=== PATIENT | male | born 1955 | race Caucasian/White ===

== ENCOUNTER 2017-05-28 09:55 | Emergency (ER) | payer SELFPAY ==
[~2017-05-28] VITALS: Ht 182.9 cm; Wt 111.1 kg
[~2017-05-28 09:55] MED LIST: CLON0.2T; DILT60TA28; METO25TA3
[2017-05-28 11:11] LABS: Basophils # (auto) 0.1 uL; Eosinophils # (auto) 0.3 uL; Eosinophils % (auto) 2.6 % (0.0-7.0); Hematocrit 50.8 % (41.0-53.0); Hemoglobin 17.3 g/dL (13.5-17.5); Lymphocytes # (auto) 2.4 uL; Lymphocytes % (auto) 21.3 % (10.0-50.0); Mean Corpuscular Hemoglobin 28.9 pg (28.0-32.0); Mean Corpuscular Hgb Conc. 34.1 g/dL (32.0-36.0); Mean Corpuscular Volume 84.6 fL (80.0-100.0); Mean Platelet Volume 7.8 fL (6.9-10.8); Monocytes # (auto) 0.7 uL; Monocytes % (auto) 6.5 % (0.0-12.0); Neutrophils # (auto) 7.6 uL; Neutrophils % (auto) 68.6 % (37.0-80.0); Nucleated Red Blood Cells % 0.1 %; Platelet Count (auto) 267 10^3/uL (140-450); Red Cell Distribution Width 13.2 % (11.8-14.3); White Blood Cell 11.1 10^3/uL (4.4-10.8)
[2017-05-28 11:34] LABS: Albumin 3.9 g/dL (3.4-5.0); Alkaline Phosphatase 74 U/L (45-117); Anion Gap 5 (5-15); Aspartate Aminotransferase 38 U/L (15-37); BUN/Creatinine Ratio 13.1; Bilirubin, Total 0.9 mg/dL (0.2-1.0); Blood Urea Nitrogen 16 mg/dL (7-18); Carbon Dioxide 33 mmol/L (21-32); Chloride 103 mmol/L (98-107); GFR African American 78 mL/min; GFR Non-African American 64 mL/min; Glucose 105 mg/dL (74-106); Potassium 3.9 mmol/L (3.5-5.1); Sodium 141 mmol/L (136-145); Total Protein 7.8 g/dL (6.4-8.2)
[2017-05-28 13:09] VITALS: BP 152/97
== END 2017-05-28 13:45 | disposition home or self-care (01) ==
LOC: ER 10:05
DX: R42 Dizziness and giddiness (principal); K21.9 Gastro-esophageal reflux disease without esophagitis; I10 Essential (primary) hypertension; F17.210 Nicotine dependence, cigarettes, uncomplicated; F12.10 Cannabis abuse, uncomplicated; Z90.49 Acquired absence of other specified parts of digestive tract
CPT/HCPCS: 36415; 71020; 80053; 84484; 85025; 93005

== ENCOUNTER 2018-08-01 14:51 | Emergency (ER) | payer SELFPAY ==
[~2018-08-01] VITALS: Ht 182.9 cm; Wt 108.9 kg
[~2018-08-01 14:51] MED LIST changes: -METO25TA3; +METO25TA4
[2018-08-01] MEDS ORDERED: cloNIDine HCL 0.1 MG TAB ONE (15:10)
[2018-08-01 15:12] VITALS: BP 211/111
[2018-08-01] MEDS ORDERED: cloNIDine HCL 0.1 MG TAB PO ONE (15:15)
[2018-08-01 17:14] LABS: Basophils # (auto) 0.1 uL; Basophils % (auto) 0.9 % (0.0-2.0); Eosinophils # (auto) 0.7 uL; Eosinophils % (auto) 6.7 % (0.0-7.0); Hematocrit 48.9 % (41.0-53.0); Hemoglobin 16.7 g/dL (13.5-17.5); Lymphocytes # (auto) 1.9 uL; Mean Corpuscular Hemoglobin 28.7 pg (28.0-32.0); Mean Corpuscular Hgb Conc. 34.2 g/dL (32.0-36.0); Monocytes # (auto) 0.7 uL; Monocytes % (auto) 6.4 % (0.0-12.0); Neutrophils # (auto) 6.8 uL; Nucleated Red Blood Cells % 0.1 %; Platelet Count (auto) 315 10^3/uL (140-450); Red Blood Cells 5.83 10^6/uL (4.5-5.90); Red Cell Distribution Width 13.5 % (11.8-14.3); White Blood Cell 10.1 10^3/uL (4.4-10.8)
[2018-08-01 17:27] LABS: Albumin 3.4 g/dL (3.4-5.0); Calcium 8.3 mg/dL (8.5-10.1); Magnesium 2.3 mg/dL (1.6-2.6)
[2018-08-01 17:32] LABS: Bilirubin, Total 0.9 mg/dL (0.2-1.0); Total Protein 7.4 g/dL (6.4-8.2)
== END 2018-08-01 22:59 | disposition left against medical advice (07) ==
LOC: ER 14:51
DX: R21 Rash and other nonspecific skin eruption (principal); Z53.21 Procedure and treatment not carried out due to patient leaving prior to being seen by health care provider
CPT/HCPCS: 36415; 71046; 80053; 83735; 84484; 85025; 93005

== ENCOUNTER 2018-08-02 07:01 | Emergency (ER) | payer SELFPAY ==
[~2018-08-02] VITALS: Ht 182.9 cm; Wt 108.9 kg
[2018-08-02 07:19] VITALS: BP 242/149
[2018-08-02] MEDS ORDERED: amLODIPine BESYLATE 5 MG TAB PO ONE (07:30)
== END 2018-08-02 14:29 | disposition left against medical advice (07) ==
LOC: ER 07:01
DX: L30.9 Dermatitis, unspecified (principal); I10 Essential (primary) hypertension; F17.210 Nicotine dependence, cigarettes, uncomplicated; F12.10 Cannabis abuse, uncomplicated; K21.9 Gastro-esophageal reflux disease without esophagitis
CPT/HCPCS: 36415; 70450; 83880; 84484; 93005

== ENCOUNTER 2018-08-04 17:39 | Emergency (ER) | payer SELFPAY ==
[2018-08-04] MEDS ORDERED: cloNIDine HCL 0.1 MG TAB ONE (17:47)
[2018-08-04] MEDS ORDERED: cloNIDine HCL 0.1 MG TAB PO ONE ×2 (18:00→23:30)
[2018-08-05 00:40] VITALS: BP 162/98
== END 2018-08-05 01:10 | disposition home or self-care (01) ==
LOC: ER 17:42
DX: I10 Essential (primary) hypertension (principal); L30.9 Dermatitis, unspecified; K21.9 Gastro-esophageal reflux disease without esophagitis; F17.210 Nicotine dependence, cigarettes, uncomplicated; F12.10 Cannabis abuse, uncomplicated; Z90.49 Acquired absence of other specified parts of digestive tract

== ENCOUNTER 2018-09-28 09:09 | Inpatient (IN) | payer SELFPAY ==
[~2018-09-28] VITALS: Ht 182.9 cm; Wt 112.0 kg
[2018-09-28] MEDS ORDERED: METOPROLOL TARTRATE 1MG/1ML-5ML VIAL IV ONE ×3 (10:15→10:30)
[2018-09-28] MEDS ORDERED: METOPROLOL TARTRATE 50 MG TAB PO ONE (10:15)
[2018-09-28 10:24] LABS: Basophils # (auto) 0.1 uL; Basophils % (auto) 1.1 % (0.0-2.0); Eosinophils # (auto) 0.5 uL; Eosinophils % (auto) 3.6 % (0.0-7.0); Hematocrit 46.8 % (41.0-53.0); Hemoglobin 15.8 g/dL (13.5-17.5); Lymphocytes # (auto) 2.4 uL; Lymphocytes % (auto) 18.8 % (10.0-50.0); Mean Corpuscular Hemoglobin 28.7 pg (28.0-32.0); Mean Corpuscular Hgb Conc. 33.9 g/dL (32.0-36.0); Mean Corpuscular Volume 84.7 fL (80.0-100.0); Monocytes # (auto) 0.9 uL; Monocytes % (auto) 7.4 % (0.0-12.0); Neutrophils # (auto) 8.7 uL; Neutrophils % (auto) 69.1 % (37.0-80.0); Nucleated Red Blood Cells % 0.3 %; Platelet Count (auto) 326 10^3/uL (140-450); Red Blood Cells 5.52 10^6/uL (4.5-5.90); Red Cell Distribution Width 13.5 % (11.8-14.3); White Blood Cell 12.7 10^3/uL (4.4-10.8)
[2018-09-28] MEDS ORDERED: AMIODARONE HCL 150 MG in D5W 5% 100 ML IV ONE (10:30)
[2018-09-28] MEDS ORDERED: AMIODARONE HCL 900 MG in DEXTROSE 500 ML IV SCH ×2 (10:32→16:32)
[2018-09-28 10:47] LABS: Potassium 3.6 mmol/L (3.5-5.1)
[2018-09-28 10:50] LABS: Calcium 8.9 mg/dL (8.5-10.1)
[2018-09-28 10:53] LABS: BUN/Creatinine Ratio 20.2
[2018-09-28 10:56] LABS: Bilirubin, Total 1.1 mg/dL (0.2-1.0); Total Protein 7.1 g/dL (6.4-8.2)
[2018-09-28 10:59] LABS: Albumin 3.6 g/dL (3.4-5.0)
[2018-09-28] MEDS ORDERED: ACETAMINOPHEN 500 MG TAB PO PRN (12:00)
[2018-09-28] MEDS ORDERED: ENALAPRILAT 1.25 MG/ML-1ML VIAL IV PRN (12:00)
[2018-09-28] MEDS: MULTIPLE VITAMIN 10 ML, MAGNESIUM SULF SDV 50% 8 MEQ, THIAMINE INJ 100 MG in D5W/SOD CH... IV SCH (12:00)
[2018-09-28] MEDS ORDERED: NITROGLYCERIN 0.4 MG SL TAB SL PRN (12:00)
[2018-09-28] MEDS ORDERED: MORPHINE SULF INJ 2 MG/ML SYRINGE 1ML IV PRN ×2 (12:00)
[2018-09-28] MEDS ORDERED: METOPROLOL TARTRATE 25 MG TAB PO ONE ×2 (12:00→16:00)
[2018-09-28] MEDS ORDERED: HYDROcodone-ACET 5/325MG TAB PO PRN (12:00)
[2018-09-28] MEDS ORDERED: ONDANSETRON HCL 4 MG/2 ML VIAL IV PRN (12:00)
[2018-09-28] MEDS ORDERED: ENOXAPARIN SOD 40 MG/0.4 ML SYRINGE SC ONE (12:15)
[2018-09-28] MEDS ORDERED: LORazepam 2MG/ML-1ML VIAL IV ONE (12:15)
[2018-09-28] MEDS: CLINDAMYCIN 300MG IV 50 ML IV SCH (14:24)
[2018-09-28 15:20] LABS: CRP High Sensitivity 0.07 mg/dL (< 0.3)
[2018-09-28] MEDS ORDERED: amLODIPine BESYLATE 5 MG TAB PO ONE (16:00)
[2018-09-28] MEDS ORDERED: METOPROLOL TARTRATE 25 MG TAB PO SCH (22:00)
[2018-09-29] MEDS: CLINDAMYCIN 300MG IV 50 ML IV SCH ×4 (00:31→22:09)
[2018-09-29] MEDS: METOPROLOL TARTRATE 25 MG TAB PO SCH ×3 (00:31→22:10)
[2018-09-29] MEDS: ATORVASTATIN 20 MG TAB PO SCH ×2 (00:31→22:09)
[2018-09-29 07:23] LABS: Basophils # (auto) 0.1 uL; Eosinophils # (auto) 0.8 uL; Eosinophils % (auto) 7.4 % (0.0-7.0); Hematocrit 42.5 % (41.0-53.0); Hemoglobin 14.4 g/dL (13.5-17.5); Lymphocytes # (auto) 2.5 uL; Lymphocytes % (auto) 23.1 % (10.0-50.0); Mean Corpuscular Hemoglobin 28.7 pg (28.0-32.0); Mean Corpuscular Hgb Conc. 33.9 g/dL (32.0-36.0); Mean Corpuscular Volume 84.7 fL (80.0-100.0); Monocytes # (auto) 0.8 uL; Monocytes % (auto) 7.2 % (0.0-12.0); Neutrophils # (auto) 6.5 uL; Neutrophils % (auto) 61.3 % (37.0-80.0); Nucleated Red Blood Cells % 0.1 %; Platelet Count (auto) 270 10^3/uL (140-450); Red Blood Cells 5.01 10^6/uL (4.5-5.90); Red Cell Distribution Width 13.5 % (11.8-14.3); White Blood Cell 10.6 10^3/uL (4.4-10.8)
[2018-09-29 07:36] LABS: Calcium 8.1 mg/dL (8.5-10.1); INR 1.02 (0.9-1.15); Partial Thromboplastin Time 27.9 sec (23.78-33.04); Prothrombin Time 10.9 sec (9.27-12.13)
[2018-09-29 07:39] LABS: BUN/Creatinine Ratio 17.5
[2018-09-29 07:40] LABS: Magnesium 2.2 mg/dL (1.6-2.6)
[2018-09-29] MEDS ORDERED: LISINOPRIL 10 MG TAB PO SCH (10:00)
[2018-09-29] MEDS ORDERED: amLODIPine BESYLATE 5 MG TAB PO SCH (10:00)
[2018-09-29] MEDS: PANTOPRAZOLE 40 MG/10 ML VIAL IV SCH (10:39)
[2018-09-29] MEDS: ASPirin-EC 81 mg tab PO SCH (10:39)
[2018-09-29] MEDS: amLODIPine BESYLATE 5 MG TAB PO SCH (10:41)
[2018-09-29] MEDS: LISINOPRIL 10 MG TAB PO SCH (10:41)
--- NOTE | 2018-09-29 10:50 | NUR ---
ASSUMED CARE OF PATIENT PATIENT IS AWAKE, ALERT, AND ORIENTED X4. RESPIRATIONS EVEN AND UNLABORED. PATIENT IS TELE #3 IN NSR WITH 67 BPM. NO S/S OF DISTRESS, SOB, OR PAIN. ORIENTED PATIENT TO UNIT, ROOM, POLICIES, AND PROCEDURES. DISCUSSED POC WITH PATIENT. PATIENT VERBALIZED UNDERSTANDING. WILL CONTINUE TO MONITOR Q1 HOUR AND PRN.
[2018-09-29 11:54] VITALS: BP 152/85
--- NOTE | 2018-09-29 12:27 | NUR ---
WOUND PHOTOS TAKEN PATIENT WAS ADMITTED TO FLOOR WITH MULTIPLE SMALL SCABS BILATERALLY ON UPPER EXTREMITIES. PATIENT BEGAN SCRATCHING SCABS. MINIMAL RED DRAINAGE NOW COMING FROM OPEN SCABS. WOUND PHOTOS TAKEN EDUCATION NOT TO SCRATCH SKIN GIVEN. SKIN HYGIENE PERFORMED. PATIENT VERBALIZED UNDERSTANDING
[2018-09-29] MEDS: MULTIPLE VITAMIN 10 ML, MAGNESIUM SULF SDV 50% 8 MEQ, THIAMINE INJ 100 MG in D5W/SOD CH... IV SCH (13:42)
[2018-09-29 16:23] VITALS: BP 143/87
--- NOTE | 2018-09-29 18:10 | NUR ---
Pelletier catheter dc'd Order to discontinue pelletier catheter. Pelletier dc'd with clean technique following deflation of balloon. Patient tolerated well with no complaints of pain. Continue care.
--- NOTE | 2018-09-29 19:55 | NUR ---
Opening shift note Pt is resting in bed with resp rate even and unlabored. NO s/s of any distress noted but pt is scratching at left arm and there is noted bleeding. Will give Benadry for the itching per orders. POC discussed with pt and pt verbalizes understanding. Pt speech is garbled/slurred and appears to be r/t missing teeth. Pt is aware that urine specimen is needed and cup at bedside. Bed is low, wheels are locked, and call light is with in reach.
--- NOTE | 2018-09-29 20:03 | NUR ---
END OF SHIFT PATIENT RESTING IN BED. NO S/S OF DISTRESS, SOB, OR PAIN. BED IS IN LOWEST POSITION, SIDE RIALS UP X2, AND CALL LIGHT WITHIN REACH. WILL ENDORSE CARE TO SPORTS ANNOUNCER R.N.
--- NOTE | 2018-09-29 21:30 | NUR ---
Pt incontinent of urine and reports urgency and was unable to collect urine. Pt assisted up to bedside chair and noted to be very unsteady on his feet. 2 person assist was needed. Bed linens and gown changed at this time. Leads also replaced at this time. Pt with 2 person assist back to bed. Bed is low, wheels are locked, and call light is with in reach.
[2018-09-29] MEDS ORDERED: TRIAMCINOLONE ACET 0.1% TOPICAL CREAM 15GM TOP SCH (22:00)
[2018-09-29] MEDS: diphenhdrAMINE HCL 50 MG/1 ML VL IV PRN (22:08)
[2018-09-29 22:57] LABS: Alcohol, Urine < 3.0 mg/dL (0-5); Amphetamine Screen, Urine POSITIVE (NEGATIVE); Barbiturate Scree,Urine NEGATIVE (NEGATIVE); Benzodiazephine Screen, Urine NEGATIVE (NEGATIVE); Cannabinoid Screen, Urine NEGATIVE (NEGATIVE); Cocaine Screen, Urine NEGATIVE (NEGATIVE); Opiate Scree,Urine NEGATIVE (NEGATIVE); Phencyclidine Screen, Urine NEGATIVE (NEGATIVE)
[2018-09-29 23:42] VITALS: BP 137/72
--- NOTE | 2018-09-30 00:30 | NUR ---
Endorsed care of pt to Jesus HAINES at this time.
--- NOTE | 2018-09-30 01:30 | NUR ---
Received Report Received report from Cait. Patient is resting with eyes closed. No s/s of distress or sob with even and unlabored. Patient is sinus rhythm with 64. Bed in lowest position and call light is within reach.
--- NOTE | 2018-09-30 02:20 | NUR ---
Incontinent and Itching of bilateral extremities Patient was incontinent and did a complete bed change. Patient tolerated well. Educated patient scratching. Patient states," I can not help it and continues to scratch both arms. no s/s distress or sob.
[2018-09-30] MEDS: diphenhdrAMINE HCL 50 MG/1 ML VL IV PRN ×2 (04:16→10:33)
[2018-09-30] MEDS: CLINDAMYCIN 300MG IV 50 ML IV SCH ×3 (05:47→21:16)
[2018-09-30 05:55] VITALS: BP 147/87
--- NOTE | 2018-09-30 06:23 | NUR ---
COMPLETE BED CHANGE: PATIENT URINATED ON THE FLOOR. THIS NURSE DID A COMPLETE BED CHANGE. PATIENT CONTINUES TO ITCH ARMS WILL GIVE BENADRYL ORDERED Addendum: 09/30/18 at 0889 by Jesus Anglin RN TIME ERROR ENTRY FOR 0405
--- NOTE | 2018-09-30 07:33 | NUR ---
Closing shift note: Endorsed care to day nurse Mary. Patient stable at this time. no s/s of distress or sob.
--- NOTE | 2018-09-30 07:34 | NUR ---
OPENING SHIFT PATIENT AWAKE IN BED. ALERT AND ORIENTED X3. NO S/S OF DISTRESS, SOB, OR PAIN. RESPIRATIONS EVEN AND UNLABORED. PATIENT NOTED TO BE CONTINUOUSLY ITCHING ARMS BILATERALLY. EDUCATED PATIENT ON LOTION ADMINISTRATION AND TO NOT SCRATCH. PATIENT VERBALIZED UNDERSTANDING BUT CONTINUED ITCHING BEHAVIOR. URINE FOUND IN PATIENT DRINKING GLASS. EDUCATED PATIENT ON USAGE OF URINAL. BED IS IN LOWEST POSITION, SIDE RAILS UP X2, AND CALL LIGHT WITHIN REACH. WILL CONTINUE TO MONITOR Q1 HOUR AND PRN.
--- NOTE | 2018-09-30 08:15 | NUR ---
TELE BOXED REMOVED TELE BOX FOUND REMOVED FROM PATIENT PATIENT STATES, " I DON'T KNOW," WHEN ASKED HOW TELE BOX WAS REMOVED. EDUCATED PATIENT ON PURPOSE OF TELE MONITORING AND RISK FACTORS OF TELE BOX REMOVAL PATIENT VERBALIZED UNDERSTANDING.
[2018-09-30 08:24] VITALS: BP 154/82
--- NOTE | 2018-09-30 08:25 | NUR ---
URINATING ON FLOOR PATIENT JUST FOUND TO BE URINATING ON FLOOR DESPITE EDUCATION ON URINAL USAGE. URINAL WITHIN REACH. RE-EDUCATED PATIENT ON USAGE OF URINAL. PER REPORT PATIENT WAS FOUND TO BE URINATING ON FLOOR DURING MANAGER PRESENTATION (X3).
[2018-09-30] MEDS: ASPirin-EC 81 mg tab PO SCH (10:26)
[2018-09-30] MEDS: PANTOPRAZOLE 40 MG/10 ML VIAL IV SCH (10:26)
[2018-09-30] MEDS: METOPROLOL TARTRATE 25 MG TAB PO SCH ×2 (10:27→21:21)
[2018-09-30] MEDS: QUEtiapine FUMARATE 100 MG TAB PO SCH (10:28)
[2018-09-30] MEDS: amLODIPine BESYLATE 5 MG TAB PO SCH (10:28)
[2018-09-30] MEDS: LISINOPRIL 10 MG TAB PO SCH (10:29)
--- NOTE | 2018-09-30 10:30 | NUR ---
WOUND CARE NOTE: WOUND CONSULT ORDERED FOR PATIENT WITH RASHES NOTED TO BILATERAL UPPER ARMS. PATIENT WAS ADMITTED TO [facility] WITH DIAGNOSIS OF VTACH. CURRENT ROSEANNA SCORE IS 16. PATIENT IS AMBULATORY, CAN SELF TURN/REPOSITION SELF. HE IS VERY RESTLESS AT THIS TIME, DIFFICULT TO EXAMINE HIS BILATERAL ARMS. PATIENT HAS ERYTHEMA, URTICARIA, WEEPING SKIN, WHERE HE HAS SCRATCHED OPEN HIS SKIN. PATIENT IS REFUSING ANY DRESSINGS TO BE APPLIED. PATIENT APPEARS TO HAVE POOR HYGIENE. PATIENT IS RECEIVING BENADRYL FOR HIS URTICARIA. HE MAY BENEFIT FROM A CORTISONE OR BENADRYL TOPICAL CREAM TO HIS BILATERAL UPPER ARMS, IF HE ALLOWS TREATMENT. OF NOTE: WOUND PHOTOS WERE TAKEN AT TIME OF ADMIT BY BEDSIDE NURSE FOR REFERENCE. NO FURTHER WOUND CARE MONITORING NEEDED AT THIS TIME.
[2018-09-30] MEDS: LORazepam 2MG/ML-1ML VIAL IV PRN ×2 (10:32→17:36)
--- NOTE | 2018-09-30 10:33 | NUR ---
WOUND CARE AT BEDSIDE EVALUATING PATIENT AT BEDSIDE WILL AWAIT WOUND CARE R.N RECOMMENDATIONS
--- NOTE | 2018-09-30 11:15 | NUR ---
SURY UPSET/ EDUCATION PROVIDED FAKRISTIN STATES PATIENT IN UNCONTROLLABLE AND OFTEN GETS VIOLENT. SURY STATES HE DISAPPEARS FOR WEEKS OR DAYS AT A TIME AND DOES DRUGS. EDUCATION PROVIDED TO SURY ABOUT SAFETY AND NARCOTICS ANONYMOUS MEETINGS, MEETINS AT CHURCHES OF HER PREFERRED RAST[employer]I, AND SHELTERS SAVHOLLY VERBALIZED UNDERSTANDING
--- NOTE | 2018-09-30 11:30 | NUR ---
TELE BOXED REMOVED TELE BOX FOUND REMOVED FROM PATIENT EDUCATED PATIENT ON PURPOSE OF TELE MONITORING AND RISK FACTORS OF TELE BOX REMOVAL PATIENT VERBALIZED UNDERSTANDING.
[2018-09-30 12:25] VITALS: BP 147/82
[2018-09-30] MEDS: MULTIPLE VITAMIN 10 ML, MAGNESIUM SULF SDV 50% 8 MEQ, THIAMINE INJ 100 MG in D5W/SOD CH... IV SCH (13:47)
--- NOTE | 2018-09-30 15:30 | NUR ---
TELE BOX REMOVED TELE BOX FOUND TO BE REMOVED FROM PATIENT ALONG WITH PATIENT GOWN PATIENT RE-EDUCATED ON PURPOSE OF TELE MONITORING, AND RISK FACTORS OF REMOVING TELE BOX. TELE BOX PLACED BACK ON PATIENT
[2018-09-30 16:55] VITALS: BP 147/69
--- NOTE | 2018-09-30 17:25 | NUR ---
PATIENT LAYING NAKED EXHAUSTER CHANA ATTEMPTED TO CLOTHE PATIENT IS HOSPITAL GOWN AND PATIENT BECAME AGGRESSIVE AND COMBATIVE. THIS R.N. WENT TO BEDSIDE, PATIENT IS AGGRESSIVE AND YELLING. TELE BOX HAS BEEN REMOVED AND PATIENT IS ATTEMPTING TO PULL OUT RIGHT IJames EDUCATED PATIENT ON IMPORTANCE OF RIJ AND TELE BOX MONITORING AND RISK FACTORS OF REMOVAL. TELE BOX LEFT OFF OF PATIENT DUE TO COMBATIVE BEHAVIOR. PATIENT REFUSES TO CLOTHE HIMSELF OR HELPED BE CLOTHED AT THIS TIME.
--- NOTE | 2018-09-30 17:36 | NUR ---
ATIVAN ADMINISTERED OFFERED PATIENT 1 MG ATIVAN TO HELP PATIENT RELAX PATIENT STATED, "YES." ATIVAN ADMINISTERED PER EMAR/ M.Moisés. ORDER
--- NOTE | 2018-09-30 19:02 | NUR ---
PATIENT URINATED ON FLOOR PATIENT URINATED ON FLOOR, REFUSING HELP FROM STAFF MEMBERS PATIENT FRIENDS AT BEDSIDE TALKING OT PATIENT
--- NOTE | 2018-09-30 19:07 | NUR ---
SECURITY AT BEDSIDE SECURITY UPDATED ON PATIENT BEHAVIOR PATIENT IN BED TALKING TO TWO SECURITY STAFF MEMBERS NO S/S OF DISTRESS,SOB, OR PAIN PATIENT IS TALKING CALM WILL ENDORSE CARE TO PLASTERING CONTRACTOR R.N
--- NOTE | 2018-09-30 19:30 | NUR ---
RECEIVED PATIENT LYING IN BED, CALM AND RELAXED AFTER SPEAKING WITH THE SECURITY. OFF TELE, PATIENT KEEPS ON REMOVING THE LEADS, TELE BOX FOUND ON THE FLOOR SOAKED WITH URINE. NO S/S OF RESPIRATORY DISTRESS. ORIENTED ON PLAN OF CARE. BED IS LOCKED AND IN LOWEST LEVEL, SIDE RAILS UP X2, BED ALARM ON, CALL LIGHT WITHIN REACH. WILL CONTINUE TO MONITOR.
--- NOTE | 2018-09-30 21:15 | NUR ---
CONNECTED PATIENT TO TELEMETRY AGAIN, TELE BOX#10. INSTRUCTED NOT TO REMOVE AND EDUCATED REGARDING IMPORTANCE OF TELE MONITORING. PATIENT DID NOT VERBALIZE UNDERSTANDING
[2018-09-30 21:20] VITALS: BP 145/82
[2018-09-30] MEDS: ATORVASTATIN 20 MG TAB PO SCH (21:21)
--- NOTE | 2018-10-01 03:00 | NUR ---
PATIENT IS AWAKE, ALERT, ORIENTED X4, NO S/S OF RESPIRATORY DISTRESS, DENIES ANY PAIN. ABLE TO SIT UP IN CHAIR WITH MODERATE ASSIST.
[2018-10-01] MEDS: diphenhdrAMINE HCL 50 MG/1 ML VL IV PRN ×3 (03:23→22:03)
[2018-10-01 04:44] VITALS: BP 150/86
[2018-10-01] MEDS: CLINDAMYCIN 300MG IV 50 ML IV SCH ×3 (05:25→21:44)
--- NOTE | 2018-10-01 07:28 | NUR ---
CARE ENDORSED TO AM SHIFT RN
[2018-10-01 08:53] VITALS: BP 154/73
[2018-10-01] MEDS: PANTOPRAZOLE 40 MG/10 ML VIAL IV SCH (09:51)
[2018-10-01] MEDS: ASPirin-EC 81 mg tab PO SCH (09:52)
[2018-10-01] MEDS: LISINOPRIL 10 MG TAB PO SCH (09:52)
[2018-10-01] MEDS: amLODIPine BESYLATE 5 MG TAB PO SCH (09:53)
[2018-10-01] MEDS: METOPROLOL TARTRATE 25 MG TAB PO SCH ×2 (09:53→21:49)
[2018-10-01] MEDS: QUEtiapine FUMARATE 100 MG TAB PO SCH (09:54)
[2018-10-01] MEDS: MULTIPLE VITAMIN 10 ML, MAGNESIUM SULF SDV 50% 8 MEQ, THIAMINE INJ 100 MG in D5W/SOD CH... IV SCH (11:54)
--- NOTE | 2018-10-01 12:39 | NUR ---
SS consult regarding homelessness. Pt has been residing with his finacee, Nathaly Kathleen, prior to admission. They have been homeless for about a month due to being evicted from home. They were renting a room in a home but the landlord . The daughter who inherited the home decided to sell and evicted those residing in the home. Pt's income is $1500 and Nathaly receives about $900 from Social security and disability. Nathaly does have her own car. Stated they tried the [facility] but neither are able to get into a top bunk and [facility] is only taking women/children at this time. Discussed option of a room rental and pt in agreeance. Contacted Mishel, [phone], regarding possible admission. Per Mishel she does have a room for a couple and would like to come and evaluate pt. Will followup at that time. Addendum: 10/01/18 at 1247 by FRANCOISE UGALDE Amended: Links added.
[2018-10-01 13:05] VITALS: BP 139/69
[2018-10-01] MEDS ORDERED: HYDROcodone-ACET 5/325MG TAB PO PRN (15:00)
[2018-10-01 17:00] VITALS: BP 144/72
[2018-10-01 17:51] LABS: Hepatitis B Surface Antibody Negative; Hepatitis B Surface Antigen Negative (Negative)
[2018-10-01 17:54] LABS: Hepatitis A Total Antibody Negative; Hepatitis B Core Total AB Negative
[2018-10-01 17:57] LABS: Hepatitis C Antibody Positive (Negative)
--- NOTE | 2018-10-01 18:04 | NUR ---
received call from lab that pt Hep C antibody is positive. Amrik Mckenna NP notified via telephone.
--- NOTE | 2018-10-01 19:10 | NUR ---
RECEIVED PATIENT LYING IN BED, AWAKE AND ALERT, EATING DINNER BY HIMSELF. NO S/S OF RESPIRATORY DISTRESS, DENIES SOB AND CHEST PAIN. ORIENTED ON PLAN OF CARE. BED IS LOCKED AND IN LOWEST LEVEL, SIDE RAILS UP X2, BED ALARM ON, CALL LIGHT WITHIN REACH. WILL CONTINUE TO MONITOR
[2018-10-01] MEDS: ATORVASTATIN 20 MG TAB PO SCH (21:44)
[2018-10-01 22:00] VITALS: BP 118/76
[2018-10-02] VITALS (8 sets, daily range): BP systolic 139–167; BP diastolic 71–97
[2018-10-02] MEDS: CLINDAMYCIN 300MG IV 50 ML IV SCH ×3 (05:44→21:21)
[2018-10-02 06:49] LABS: Basophils # (auto) 0.1 uL; Basophils % (auto) 0.8 % (0.0-2.0); Eosinophils # (auto) 1.2 uL; Eosinophils % (auto) 12.1 % (0.0-7.0); Hematocrit 44.5 % (41.0-53.0); Hemoglobin 15.6 g/dL (13.5-17.5); Lymphocytes # (auto) 1.9 uL; Lymphocytes % (auto) 18.5 % (10.0-50.0); Mean Corpuscular Hemoglobin 29.4 pg (28.0-32.0); Mean Corpuscular Hgb Conc. 35.1 g/dL (32.0-36.0); Mean Corpuscular Volume 83.8 fL (80.0-100.0); Monocytes # (auto) 0.7 uL; Monocytes % (auto) 6.9 % (0.0-12.0); Neutrophils # (auto) 6.3 uL; Neutrophils % (auto) 61.7 % (37.0-80.0); Nucleated Red Blood Cells % 0.6 %; Platelet Count (auto) 264 10^3/uL (140-450); Red Blood Cells 5.31 10^6/uL (4.5-5.90); Red Cell Distribution Width 13.6 % (11.8-14.3); White Blood Cell 10.3 10^3/uL (4.4-10.8)
--- NOTE | 2018-10-02 07:18 | NUR ---
CARE ENDORSED TO AM SHIFT RN
[2018-10-02 07:28] LABS: Potassium 4.2 mmol/L (3.5-5.1)
[2018-10-02 07:33] LABS: Albumin 3.1 g/dL (3.4-5.0); Calcium 8.7 mg/dL (8.5-10.1); Magnesium 2.3 mg/dL (1.6-2.6)
[2018-10-02 07:36] LABS: BUN/Creatinine Ratio 13.9
[2018-10-02 07:39] LABS: Bilirubin, Total 0.8 mg/dL (0.2-1.0); Total Protein 6.5 g/dL (6.4-8.2)
[2018-10-02] MEDS ORDERED: ADENOSINE 94 MG in GIVE UN-DILUTED 0 ML IV STA (08:20)
[2018-10-02] MEDS: PANTOPRAZOLE 40 MG/10 ML VIAL IV SCH (09:53)
[2018-10-02] MEDS: ASPirin-EC 81 mg tab PO SCH (09:53)
[2018-10-02] MEDS: amLODIPine BESYLATE 5 MG TAB PO SCH (09:54)
[2018-10-02] MEDS: QUEtiapine FUMARATE 100 MG TAB PO SCH (09:55)
[2018-10-02] MEDS: LISINOPRIL 10 MG TAB PO SCH (09:55)
[2018-10-02] MEDS: METOPROLOL TARTRATE 25 MG TAB PO SCH ×2 (09:55→21:22)
[2018-10-02] MEDS: MULTIPLE VITAMIN 10 ML, MAGNESIUM SULF SDV 50% 8 MEQ, THIAMINE INJ 100 MG in D5W/SOD CH... IV SCH (13:03)
[2018-10-02] MEDS: diphenhdrAMINE HCL 50 MG/1 ML VL IV PRN (13:03)
[2018-10-02] MEDS ORDERED: DILTIAZEM HCL 120MG ER CAP PO ONE (13:45)
--- NOTE | 2018-10-02 15:31 | NUR ---
NUTRITION ASSESSMENT NOTES Please refer to link notes of nutrition screen form filed under the intervention section of the plan of care for further details. Est. Needs: 2000 kcal to 2550 kcal (18-23 kcal/kgBW), 90 gms to 112 gms pro (0.8-1.0 gms/kgBW). Will continue to monitor pertinent labs and reassess nutrient need prn Thank you. Addendum: 10/02/18 at [address] Amended: Links added.
--- NOTE | 2018-10-02 19:20 | NUR ---
Opening Shift Note Received report from chelsey Tim RN. Assumed care of patient, awake and alert. Nathaly at bedside. No S/S of distress/SOB or pain. Instructed on POC and to call for assist PRN, will continue to monitor for changes Q1hr and PRN.
[2018-10-02] MEDS: ATORVASTATIN 20 MG TAB PO SCH (21:22)
[2018-10-03] MEDS: diphenhdrAMINE HCL 50 MG/1 ML VL IV PRN ×2 (03:54→10:29)
--- NOTE | 2018-10-03 04:00 | NUR ---
PATIENT HAS BEED USING THE URINAL TO URINATE. NO EPISODE OF INCONTINENCE NOTED. PATIENT IS ALERT AND AWAKE, BUT CONTINUES TO SCRATCH ARMS AND HANDS. GIVEN BENADRYL 50MG IV ORDERED. WILL MONITOR
[2018-10-03 05:00] VITALS: BP 148/64
--- NOTE | 2018-10-03 05:18 | NUR ---
PICC LINE DRESSING CHANGED. PATIENT TOLERATED WELL.
[2018-10-03] MEDS: CLINDAMYCIN 300MG IV 50 ML IV SCH ×2 (06:20→12:59)
[2018-10-03 08:26] VITALS: BP 144/68
[2018-10-03 08:55] VITALS: BP 144/68
[2018-10-03] MEDS: PANTOPRAZOLE 40 MG/10 ML VIAL IV SCH (09:07)
[2018-10-03] MEDS: ASPirin-EC 81 mg tab PO SCH (09:07)
[2018-10-03] MEDS: QUEtiapine FUMARATE 100 MG TAB PO SCH (09:08)
[2018-10-03] MEDS: METOPROLOL TARTRATE 25 MG TAB PO SCH (09:08)
[2018-10-03] MEDS: LISINOPRIL 10 MG TAB PO SCH (09:09)
[2018-10-03] MEDS ORDERED: DILTIAZEM HCL 120MG ER CAP PO SCH (10:00)
--- NOTE | 2018-10-03 10:51 | NUR ---
Followed up with pt/Nathaly and Mishel regarding outcome for placement. Per Mishel, pt and Nathaly were accepted and could stay in her home. Nathaly stated that the rental room rate is too high ($1500) for two people. States that the home is "beautiful" but that it is too high. Per Nathaly she is looking into other options for placement. Informed her if any additional assistance is needed to please contact me.
[2018-10-03] MEDS ORDERED: ASP81EC PO (11:51)
[2018-10-03] MEDS ORDERED: CLIN1CAP4 PO (11:51)
[2018-10-03] MEDS ORDERED: DIL120C PO (11:58)
[2018-10-03] MEDS ORDERED: MET25T PO (11:58)
[2018-10-03] MEDS ORDERED: LISI10TA6 PO (11:58)
--- NOTE | 2018-10-03 12:28 | NUR ---
DR NGUYEN IS NOT GOING TO DO ANY FURTHER INTERVENTION DURING THIS VISIT AND HAS CLEARED THE PATIENT TO BE DISCHARGED
[2018-10-03 13:00] VITALS: BP 141/64
[2018-10-03 14:37] VITALS: BP 141/61
--- NOTE | 2018-10-03 16:14 | NUR ---
PATIENT DISCHARGED WITH SIGNIFICANT OTHER. PATIENT AUTHORIZED SIGNIFICANT OTHER TO SIGN FOR HIM WHILE HE DRESSED. ALL DISCHARGE PAPERWORK SIGNED AND DISCHARGE INSTRUCTIONS GIVEN. PATIENT GIVEN INFORMATION ON MAKING AN APPOINTMENT WITH A PRIMARY CARE PROVIDER ONCE THEY OBTAINED ONE. PATIENT WAS ALSO GIVEN INFORMATION ON HOW TO OBTAIN INSURANCE HELP
== END 2018-10-03 16:20 | disposition home or self-care (01) | DRG 309 ==
LOC: EDBD 09:09 → ER 09:17 → TELE 12:05 → TELE-EAST 09-29 10:52
PROVIDERS: ADMIT Nurse Practitioner Acute Care; ATTEND Internal Medicine
DX: I47.1 Supraventricular tachycardia (principal); L03.114 Cellulitis of left upper limb; F32.9 Major depressive disorder, single episode, unspecified; E66.01 Morbid (severe) obesity due to excess calories; F03.90 Unspecified dementia, unspecified severity, without behavioral disturbance, psychotic disturbance, mood disturbance, and anxiety; F17.210 Nicotine dependence, cigarettes, uncomplicated; B19.20 Unspecified viral hepatitis C without hepatic coma; F10.10 Alcohol abuse, uncomplicated; F41.9 Anxiety disorder, unspecified; I25.10 Atherosclerotic heart disease of native coronary artery without angina pectoris; K21.9 Gastro-esophageal reflux disease without esophagitis; Z71.6 Tobacco abuse counseling; Z59.0 Homelessness; I25.2 Old myocardial infarction; Z79.899 Other long term (current) drug therapy; Z82.49 Family history of ischemic heart disease and other diseases of the circulatory system; Z86.73 Personal history of transient ischemic attack (TIA), and cerebral infarction without residual deficits; Z91.19 Patient's noncompliance with other medical treatment and regimen; Z68.33 Body mass index [BMI] 33.0-33.9, adult
CPT/HCPCS: 36415; 70450; 71045; 71046; 78452; 80048; 80053; 80061; 80307; 82550; 83036; 83605; 83735; 83874; 84484; 85025; 85610; 85730; 86141; 86704; 86706; 86708; 86803; 87040; 87340; 93017; 93306; 96365; 96368; 96375; A6257; C9113; G0378; J0153; J3490; J7060

== ENCOUNTER 2019-02-01 09:34 | Inpatient (IN) | payer MEDICAID, MEDICARE ==
[~2019-02-01] VITALS: Ht 182.9 cm; Wt 104.7 kg
[~2019-02-01 09:34] MED LIST changes: +ASP81EC PO; +CLIN300C8 PO; -CLON0.2T; +DILT120C12 PO; -DILT60TA28; +LISI10TA6 PO; +MET25T PO; -METO25TA4
[2019-02-01] MEDS ORDERED: methylPREDNISolone SOD SUCC 125 MG/2 ML VL IV ONE (10:00)
[2019-02-01] MEDS ORDERED: IPRATROPIUM BROM 0.5 MG/2.5ML INH SOL NEB ONE (10:00)
[2019-02-01] MEDS ORDERED: ALBUTEROL SULF 2.5 MG/0.5ML(0.5%) NEB SOLN NEB ONE (10:00)
[2019-02-01 10:41] LABS: Basophils # (auto) 0.1 uL; Eosinophils # (auto) 0.1 uL; Eosinophils % (auto) 1.5 % (0.0-7.0); Hematocrit 46.2 % (41.0-53.0); Lymphocytes # (auto) 1.8 uL; Lymphocytes % (auto) 19.7 % (10.0-50.0); Mean Corpuscular Hemoglobin 29.2 pg (28.0-32.0); Mean Corpuscular Hgb Conc. 34.6 g/dL (32.0-36.0); Mean Corpuscular Volume 84.4 fL (80.0-100.0); Monocytes # (auto) 0.5 uL; Monocytes % (auto) 5.5 % (0.0-12.0); Neutrophils # (auto) 6.7 uL; Neutrophils % (auto) 72.3 % (37.0-80.0); Nucleated Red Blood Cells % 0.2 %; Platelet Count (auto) 214 10^3/uL (140-450); Red Blood Cells 5.47 10^6/uL (4.5-5.90); Red Cell Distribution Width 13.2 % (11.8-14.3); White Blood Cell 9.3 10^3/uL (4.4-10.8)
[2019-02-01 11:01] LABS: Alanine Aminotransferase 43 U/L (16-61); Albumin 3.7 g/dL (3.4-5.0); Anion Gap 9 (5-15); Aspartate Aminotransferase 36 U/L (15-37); Blood Urea Nitrogen 20 mg/dL (7-18); Calcium 8.3 mg/dL (8.5-10.1); Carbon Dioxide 27 mmol/L (21-32); Chloride 105 mmol/L (98-107); GFR African American 97 mL/min; GFR Non-African American 80 mL/min; Glucose 101 mg/dL (74-106); INR 1.01 (0.9-1.15); Partial Thromboplastin Time 27.8 sec (23.64-32.05); Potassium 3.6 mmol/L (3.5-5.1); Sodium 141 mmol/L (136-145)
[2019-02-01 11:03] LABS: Alkaline Phosphatase 76 U/L (45-117); Bilirubin, Total 1.1 mg/dL (0.2-1.0); Total Protein 6.4 g/dL (6.4-8.2)
[2019-02-01] MEDS ORDERED: LABETALOL HCL 5 MG/ML ML 20ML VIAL IV ONE (11:15)
[2019-02-01] MEDS ORDERED: amLODIPine BESYLATE 5 MG TAB PO ONE (12:15)
[2019-02-01 12:55] LABS: Urine Bacteria NONE SEEN /hpf (None Seen); Urine Blood Negative /uL (Negative); Urine Mucus FEW (None Seen); Urine Specific Gravity 1.023 (1.001-1.035); Urine WBC <1 /hpf (0 - 3)
[2019-02-01] MEDS ORDERED: LISINOPRIL 20 MG TAB PO ONE (13:45)
[2019-02-01] MEDS ORDERED: METOPROLOL TARTRATE 50 MG TAB PO ONE (13:45)
[2019-02-01] MEDS ORDERED: traMADol HCL 50 MG TAB PO PRN (13:45)
[2019-02-01] MEDS ORDERED: ACETAMINOPHEN 500 MG TAB PO PRN (13:45)
[2019-02-01] MEDS ORDERED: NITROGLYCERIN 0.4 MG SL TAB SL PRN (13:45)
[2019-02-01] MEDS ORDERED: TEMAZEPAM 15 MG CAP PO PRN (13:45)
[2019-02-01] MEDS ORDERED: MORPHINE SULF INJ 2 MG/ML SYRINGE 1ML IV PRN (13:45)
[2019-02-01] MEDS ORDERED: hydrALAZINE HCL 20 MG/ML VL IV ONE (13:45)
[2019-02-01] MEDS ORDERED: PROMETHAZINE HCL 25 MG/ML 1ML IV PRN (13:45)
[2019-02-01] MEDS: SODIUM CHLOR 0.9% PF (SALINE LOCK) 10ML VIAL/SYR IV SCH ×2 (14:02→20:45)
[2019-02-01] MEDS: hydrALAZINE HCL 20 MG/ML VL IV PRN ×2 (15:00→21:49)
[2019-02-01 17:18] VITALS: BP 188/98
--- NOTE | 2019-02-01 19:34 | NUR ---
Opening Shift Note Assumed care of patient, alert and oriented. No S/S of distress/SOB or pain. Call light is within reach, side rails up x2, bed is in lowest position. Instructed on POC and to call for assist PRN. All questions and concerns answered, will continue to monitor for changes Q1hr and PRN.
[2019-02-01] MEDS: METOPROLOL TARTRATE 50 MG TAB PO SCH (20:45)
[2019-02-01 22:00] VITALS: BP 180/88
--- NOTE | 2019-02-01 22:41 | NUR ---
BP reassessed after giving Apresoline 10 mg IV for a blood pressure of 160/94. BP is now 147/81 mmHg. Patient is resting in bed. No complaints of pain or distress, will continue to monitor.
[2019-02-01 23:47] LABS: Alcohol, Urine < 3.0 mg/dL (0-5); Amphetamine Screen, Urine POSITIVE (NEGATIVE); Barbiturate Scree,Urine NEGATIVE (NEGATIVE); Benzodiazephine Screen, Urine NEGATIVE (NEGATIVE); Cannabinoid Screen, Urine NEGATIVE (NEGATIVE); Cocaine Screen, Urine NEGATIVE (NEGATIVE); Opiate Scree,Urine NEGATIVE (NEGATIVE); Phencyclidine Screen, Urine NEGATIVE (NEGATIVE)
[2019-02-02 05:25] VITALS: BP 112/79
[2019-02-02] MEDS: SODIUM CHLOR 0.9% PF (SALINE LOCK) 10ML VIAL/SYR IV SCH ×3 (06:07→21:43)
--- NOTE | 2019-02-02 06:56 | NUR ---
Closing Note Patient is resting in bed. No S/S of distress, SOB, or pain. Bed alarm is on. Will endorse care to dayshift RN.
[2019-02-02 07:01] LABS: Cholesterol 130 mg/dL (< 200); HDL Cholesterol 52 mg/dL (40-59); LDL Cholesterol 68 mg/dL (< 100); Triglycerides 46 mg/dL (< 150)
--- NOTE | 2019-02-02 07:35 | NUR ---
Opening Shift Note Assumed care of patient, comfortably sleeping, on room air. No S/S of distress/SOB or pain noted. Bed at lowest locked position, side rails up x2 will continue to monitor for changes Q1hr and PRN.
[2019-02-02 08:00] VITALS: BP 154/77
[2019-02-02 08:56] VITALS: BP 154/77
[2019-02-02] MEDS: POTASSIUM CHL 20 Meq TABLET PO SCH (09:10)
[2019-02-02] MEDS: FUROSEMIDE 40 MG/4 ML VIAL IV SCH (09:10)
[2019-02-02] MEDS: ASPirin 81 mg TAB PO SCH (09:10)
[2019-02-02] MEDS: LISINOPRIL 20 MG TAB PO SCH (09:11)
[2019-02-02] MEDS: METOPROLOL TARTRATE 50 MG TAB PO SCH ×2 (09:11→21:44)
[2019-02-02] MEDS: PANTOPRAZOLE 40 MG TAB PO SCH (09:11)
[2019-02-02] MEDS: NITROGLYCERIN 0.2MG/HR TOPICAL PATCH TD SCH (09:12)
[2019-02-02 13:00] VITALS: BP 141/81
[2019-02-02 17:00] VITALS: BP 148/84
--- NOTE | 2019-02-02 19:09 | NUR ---
Closing note Patient is comfortably sitting up in bed on room air. Bed at lowest locked position and call light is within reach. No c/o pain. No s/s of sob/distress. Care endorse to NOC RN.
--- NOTE | 2019-02-02 19:20 | NUR ---
RECEIVED PATIENT FROM DAY SHIFT RN. PATIENT RESTING IN BED. NO S/S OF DISTRESS NOTED. DENIED PAIN FOR NOW. POC INSTRUCTED AND ENCOURAGED PATIENT TO CALL FOR FAMILY AND CONSUMER SCIENCES PROFESSOR IF NEEDED. BED IN LOWEST POSITION WITH SIDE RAILS UP X 2. CALL ABBOTT WITHIN REACH. ALARM ON. CONTINUE TO MONITOR FOR CHANGES Q1H AND PRN.
--- NOTE | 2019-02-02 19:25 | NUR ---
REORIENTED PATIENT TIME AND SITUATION. PATENT VERBALIZED UNDERSTANDING. CONTINUE TO MONITOR.
--- NOTE | 2019-02-02 21:06 | NUR ---
FAMILY AT BEDSIDE. UPDATED ON PATIENT NEXT OF KIN AND PASSWORD. PATIENT'S FAMILY CONCERNED PATIENT LIVING SITUATION AND REQUESTED TO D/C PATIENT TO SNF OR BOARDING CARE. WILL PASS IT TO DAY SHIFT RN. CONTINUE TO MONITOR.
[2019-02-02 22:00] VITALS: BP 159/85
--- NOTE | 2019-02-02 23:10 | NUR ---
REASSESSED BP 144/72, HR 63. CONTINUE TO MONITOR.
--- NOTE | 2019-02-03 01:08 | NUR ---
PATIENT GETTING AGITATE AND TRYING TO GO OUT TO SMOKE. THERE IS NO CIGARETTE AT PATIENT BEDSIDE. CHARGE NURSE TOMI WALKING THROUGH AND HELPED TO STOP PATIENT, EXPORT SALES MANAGER CALLED AND CAME TO ROOM TO STOP PATIENT WELL. PATIENT AGREED TO TAKE SLEEPING PILL TO STAY IN THE ROOM NOW. CONTINUE TO MONITOR.
--- NOTE | 2019-02-03 02:42 | NUR ---
PATIENT LYING ON THE BED AND WATCHING TV. NO S/S OF DISTRESS NOTED. ALARM ON. CONTINUE TO MONITOR.
--- NOTE | 2019-02-03 04:25 | NUR ---
RECEIVED CALL FROM [employer], PATIENT JUST HAD A RUN OF VT @ 0420, CHECKED PATIENT , NO S/S OF DISTRESS NOTED. DENIED CHEST PAIN AND DISCOMFORT. VITALS STABLE, TEMP 98.8, HR 76, RR 18, BP 161/92, O2 SAT 95% ON RA. CONTINUE TO MONITOR.
[2019-02-03 05:28] VITALS: BP 161/92
[2019-02-03] MEDS: SODIUM CHLOR 0.9% PF (SALINE LOCK) 10ML VIAL/SYR IV SCH (06:06)
--- NOTE | 2019-02-03 06:18 | NUR ---
PATIENT SLEEPING. NO S/S OF DISTRESS AND PAIN NOTED. CONTINUE TO MONITOR.
[2019-02-03 07:00] LABS: Basophils # (auto) 0 uL; Basophils % (auto) 0.4 % (0.0-2.0); Eosinophils # (auto) 0.1 uL; Eosinophils % (auto) 1.1 % (0.0-7.0); Hematocrit 47.2 % (41.0-53.0); Hemoglobin 16.3 g/dL (13.5-17.5); Lymphocytes # (auto) 3.7 uL; Lymphocytes % (auto) 28.3 % (10.0-50.0); Mean Corpuscular Hemoglobin 29.1 pg (28.0-32.0); Mean Corpuscular Hgb Conc. 34.6 g/dL (32.0-36.0); Mean Corpuscular Volume 84.1 fL (80.0-100.0); Monocytes # (auto) 0.8 uL; Monocytes % (auto) 6.2 % (0.0-12.0); Neutrophils # (auto) 8.3 uL; Nucleated Red Blood Cells % 0.1 %; Platelet Count (auto) 251 10^3/uL (140-450); Red Cell Distribution Width 13.5 % (11.8-14.3); White Blood Cell 12.9 10^3/uL (4.4-10.8)
[2019-02-03 07:13] LABS: Alanine Aminotransferase 53 U/L (16-61); Albumin 3.5 g/dL (3.4-5.0); Anion Gap 9 (5-15); Aspartate Aminotransferase 45 U/L (15-37); Blood Urea Nitrogen 26 mg/dL (7-18); Calcium 8.8 mg/dL (8.5-10.1); Carbon Dioxide 27 mmol/L (21-32); Chloride 105 mmol/L (98-107); Glucose 73 mg/dL (74-106); Potassium 3.6 mmol/L (3.5-5.1); Sodium 141 mmol/L (136-145)
[2019-02-03 07:18] LABS: Alkaline Phosphatase 75 U/L (45-117); BUN/Creatinine Ratio 25.5; Bilirubin, Total 0.9 mg/dL (0.2-1.0); GFR African American 95 mL/min; GFR Non-African American 79 mL/min; Total Protein 6.7 g/dL (6.4-8.2)
[2019-02-03 08:00] VITALS: BP 153/90
[2019-02-03 09:00] VITALS: BP 153/90
[2019-02-03] MEDS: METOPROLOL TARTRATE 50 MG TAB PO SCH (09:57)
[2019-02-03] MEDS: NITROGLYCERIN 0.2MG/HR TOPICAL PATCH TD SCH (09:57)
[2019-02-03] MEDS: ASPirin 81 mg TAB PO SCH (09:57)
[2019-02-03] MEDS: POTASSIUM CHL 20 Meq TABLET PO SCH (09:57)
[2019-02-03] MEDS: PANTOPRAZOLE 40 MG TAB PO SCH (09:57)
[2019-02-03] MEDS: LISINOPRIL 20 MG TAB PO SCH (09:58)
[2019-02-03] MEDS: FUROSEMIDE 40 MG/4 ML VIAL IV SCH (09:58)
[2019-02-03 10:50] VITALS: BP 153/90
--- NOTE | 2019-02-03 11:30 | NUR ---
PATIENT COMBATIVE. [facility] CALLED. PATIENT DEMANDING TO DISCHARGE. WILLING TO WAIT FOR PAPERWORK. TAXI VOUCHER PROVIDED FOR PATIENT PER HIS REQUEST
--- NOTE | 2019-02-03 11:59 | NUR ---
PATIENT IS DISCHARGED HOME. ALL IV ACCESS DISCONTINUED. TELEMETRY IS REMOVED AND RETURNED TO TELEMETRY DEPARTMENT. ALL DISCHARGE INSTRUCTIONS GIVEN. ALL DISCHARGE PAPERWORK SIGNED
== END 2019-02-03 12:00 | disposition home or self-care (01) | DRG 292 ==
LOC: EDBD 09:34 → ER 09:34 → TELE 09:35 → TELE-CENTR 14:46
PROVIDERS: ADMIT Internal Medicine; ATTEND Internal Medicine
DX: I11.0 Hypertensive heart disease with heart failure (principal); J44.1 Chronic obstructive pulmonary disease with (acute) exacerbation; I50.43 Acute on chronic combined systolic (congestive) and diastolic (congestive) heart failure; I25.10 Atherosclerotic heart disease of native coronary artery without angina pectoris; K21.9 Gastro-esophageal reflux disease without esophagitis; I70.0 Atherosclerosis of aorta; F15.10 Other stimulant abuse, uncomplicated; E66.9 Obesity, unspecified; I25.2 Old myocardial infarction; Z59.0 Homelessness; Z82.49 Family history of ischemic heart disease and other diseases of the circulatory system; Z91.14 Patient's other noncompliance with medication regimen; Z90.49 Acquired absence of other specified parts of digestive tract; Z79.899 Other long term (current) drug therapy; Z68.31 Body mass index [BMI] 31.0-31.9, adult
CPT/HCPCS: 36415; 71045; 80053; 80061; 80307; 81001; 82550; 83735; 83880; 84443; 84484; 85025; 85379; 85610; 85652; 85730; 93005; 94640; 94761; 96374; 96375; G0378

== ENCOUNTER 2019-02-19 18:46 | Emergency (ER) | payer MEDICARE ==
[~2019-02-19] VITALS: Ht 182.9 cm; Wt 104.3 kg
[~2019-02-19 18:46] MED LIST changes: -CLIN300C8 PO
[2019-02-19 20:35] LABS: Basophils # (auto) 0.1 uL; Eosinophils # (auto) 0.5 uL; Eosinophils % (auto) 6.4 % (0.0-7.0); Hematocrit 47.2 % (41.0-53.0); Hemoglobin 16.2 g/dL (13.5-17.5); Lymphocytes # (auto) 2.1 uL; Lymphocytes % (auto) 26.9 % (10.0-50.0); Mean Corpuscular Hemoglobin 29.2 pg (28.0-32.0); Mean Corpuscular Hgb Conc. 34.3 g/dL (32.0-36.0); Monocytes # (auto) 0.5 uL; Monocytes % (auto) 5.8 % (0.0-12.0); Neutrophils # (auto) 4.8 uL; Neutrophils % (auto) 59.9 % (37.0-80.0); Nucleated Red Blood Cells % 0.4 %; Platelet Count (auto) 259 10^3/uL (140-450); Red Blood Cells 5.56 10^6/uL (4.5-5.90); Red Cell Distribution Width 13.6 % (11.8-14.3)
[2019-02-19 20:50] LABS: Anion Gap 7 (5-15); BUN/Creatinine Ratio 18.4; Blood Urea Nitrogen 21 mg/dL (7-18); Carbon Dioxide 26 mmol/L (21-32); Chloride 108 mmol/L (98-107); Glucose 81 mg/dL (74-106); Potassium 4.1 mmol/L (3.5-5.1); Sodium 141 mmol/L (136-145)
[2019-02-19 20:51] LABS: Alanine Aminotransferase 79 U/L (16-61); Albumin 3.8 g/dL (3.4-5.0); Aspartate Aminotransferase 66 U/L (15-37); Blood Alcohol < 3.0 mg/dL (0-5); Calcium 8.6 mg/dL (8.5-10.1); GFR African American 84 mL/min; GFR Non-African American 69 mL/min; Magnesium 2.4 mg/dL (1.6-2.6)
[2019-02-19 20:54] LABS: Alkaline Phosphatase 69 U/L (45-117); Bilirubin, Total 1.2 mg/dL (0.2-1.0)
[2019-02-19 21:06] LABS: Acetaminophen < 2.0 ug/mL (10-30); Salicylate < 1.7 mg/dL (2.8-20.0)
[2019-02-19] MEDS ORDERED: cloNIDine HCL 0.1 MG TAB PO ONE (23:30)
[2019-02-20] VITALS: BP 189/93
== END 2019-02-20 01:14 | disposition home or self-care (01) ==
LOC: ER 18:46 → EDBD 18:46 → ER 02-20 01:14
DX: F41.9 Anxiety disorder, unspecified (principal); F19.10 Other psychoactive substance abuse, uncomplicated; K70.30 Alcoholic cirrhosis of liver without ascites; Z74.8 Other problems related to care provider dependency; Z59.0 Homelessness; Z79.82 Long term (current) use of aspirin; Z79.899 Other long term (current) drug therapy
CPT/HCPCS: 36415; 80053; 80320; 80329; 83735; 85025; 93005

== ENCOUNTER 2019-02-26 22:46 | Emergency (ER) | payer SELFPAY ==
[~2019-02-26] VITALS: Ht 172.7 cm; Wt 106.6 kg
[2019-02-26 23:55] LABS: Basophils # (auto) 0.1 uL; Basophils % (auto) 1.2 % (0.0-2.0); Eosinophils # (auto) 0.1 uL; Hematocrit 46.8 % (41.0-53.0); Hemoglobin 16.3 g/dL (13.5-17.5); Lymphocytes # (auto) 2.9 uL; Lymphocytes % (auto) 29.7 % (10.0-50.0); Mean Corpuscular Hemoglobin 29.4 pg (28.0-32.0); Mean Corpuscular Hgb Conc. 34.7 g/dL (32.0-36.0); Mean Corpuscular Volume 84.8 fL (80.0-100.0); Monocytes # (auto) 0.6 uL; Monocytes % (auto) 6.4 % (0.0-12.0); Neutrophils # (auto) 6.1 uL; Neutrophils % (auto) 61.7 % (37.0-80.0); Nucleated Red Blood Cells % 0.1 %; Platelet Count (auto) 288 10^3/uL (140-450); Red Blood Cells 5.52 10^6/uL (4.5-5.90); Red Cell Distribution Width 13.5 % (11.8-14.3); White Blood Cell 9.9 10^3/uL (4.4-10.8)
[2019-02-27 00:14] LABS: Albumin 4.2 g/dL (3.4-5.0); Calcium 9.1 mg/dL (8.5-10.1); Potassium 4.3 mmol/L (3.5-5.1)
[2019-02-27 00:17] LABS: BUN/Creatinine Ratio 20.2
[2019-02-27 00:19] LABS: Bilirubin, Total 1.3 mg/dL (0.2-1.0); Total Protein 7.4 g/dL (6.4-8.2)
[2019-02-27 09:04] LABS: Urine Bacteria NONE SEEN /hpf (None Seen); Urine Blood Negative /uL (Negative); Urine Mucus FEW (None Seen); Urine WBC 1 /hpf (0 - 3)
[2019-02-27] MEDS ORDERED: LABETALOL HCL 5 MG/ML ML 20ML VIAL IV ONE (09:15)
[2019-02-27 09:21] LABS: Alcohol, Urine < 3.0 mg/dL (0-5); Cannabinoid Screen, Urine POSITIVE (NEGATIVE)
[2019-02-27 09:28] LABS: Amphetamine Screen, Urine NEGATIVE (NEGATIVE); Barbiturate Scree,Urine NEGATIVE (NEGATIVE); Benzodiazephine Screen, Urine NEGATIVE (NEGATIVE); Cocaine Screen, Urine NEGATIVE (NEGATIVE); Opiate Scree,Urine NEGATIVE (NEGATIVE); Phencyclidine Screen, Urine NEGATIVE (NEGATIVE)
[2019-02-27 11:42] VITALS: BP 161/95
== END 2019-02-27 11:45 | disposition home or self-care (01) ==
LOC: ER 22:50
DX: Z04.6 Encounter for general psychiatric examination, requested by authority (principal); Z59.0 Homelessness; F17.200 Nicotine dependence, unspecified, uncomplicated; F12.10 Cannabis abuse, uncomplicated; F15.10 Other stimulant abuse, uncomplicated; K21.9 Gastro-esophageal reflux disease without esophagitis; I10 Essential (primary) hypertension; I25.2 Old myocardial infarction; Z87.820 Personal history of traumatic brain injury
CPT/HCPCS: 36415; 71045; 80053; 80307; 80320; 81001; 85025; 93005